=== PATIENT | male | born 1985 | race Caucasian/White ===

== ENCOUNTER → 2023-09-29 14:55 | Outpatient (REF) | payer OTHER, SELFPAY ==
[2023-10-02 16:23] LABS: Blood Urea Nitrogen 8 mg/dl (9-20); Calcium 10.3 mg/dl (8.4-10.2); Carbon Dioxide 29 mmol/L (22-30); Chloride 104 mmol/L (98-107); Glucose 102 mg/dl (70-99); Potassium 4.1 mmol/L (3.5-5.1); Sodium 141 mmol/L (135-145); eGFR > 60.00
== END ==
LOC: CLAB 14:55
PROVIDERS: ATTENDING PHYSICIAN Family Medicine
DX: C73 Malignant neoplasm of thyroid gland (principal)
CPT/HCPCS: 36415; 80048

== ENCOUNTER → 2023-10-09 14:32 | Outpatient (REF) | payer OTHER, SELFPAY | LOC: HWRAD 14:32 | PROVIDERS: ATTENDING PHYSICIAN Family Medicine | DX: C73 Malignant neoplasm of thyroid gland (principal) | CPT/HCPCS: 70492; Q9967 ==

== ENCOUNTER → 2023-12-26 11:01 | Outpatient (REF) | payer OTHER, SELFPAY | LOC: RAD 11:01 | PROVIDERS: ATTENDING PHYSICIAN Family Medicine | DX: R05.9 Cough, unspecified (principal) | CPT/HCPCS: 71046 ==

== ENCOUNTER → 2024-08-30 10:57 | Outpatient (REF) | payer OTHER, SELFPAY | LOC: RAD 10:57 | PROVIDERS: ATTENDING PHYSICIAN Nurse Practitioner Family; FAMILY PHYSICIAN Family Medicine | DX: S29.9XXA Unspecified injury of thorax, initial encounter (principal) | CPT/HCPCS: 71111 ==

== ENCOUNTER → 2024-10-24 08:54 | Outpatient (REF) | payer OTHER, SELFPAY | LOC: HWRAD 08:54 | PROVIDERS: ATTENDING PHYSICIAN Family Medicine | DX: R07.9 Chest pain, unspecified (principal); R07.89 Other chest pain | CPT/HCPCS: 71250 ==